=== PATIENT | female | born 1960 | race Caucasian/White ===

== ENCOUNTER 2024-06-24 21:54 | Inpatient (IN) | payer MEDICARE, OTHER ==
[~2024-06-24] VITALS: Ht 160 cm; Wt 81.6 kg
[2024-06-24] MEDS ORDERED: REMEDY ESSENTIAL ZINC PASTE 113 GM TP PRN (22:15)
[2024-06-24] MEDS ORDERED: ONDANSETRON 4 MG/2 ML VIAL IV PRN (22:15)
[2024-06-24] MEDS: IV NS 1000 ML 1,000 ML IV PRN (23:14)
[2024-06-24] MEDS: HYDROCODONE/APAP 5-325MG TABLET PO PRN (23:29)
[2024-06-25] VITALS (7 sets, daily range): BP systolic 136–162; BP diastolic 81–88; TEMP 98–99.5; O2SAT 97–99
[2024-06-25] MEDS: MORPHINE SULFATE 2 MG/1 ML DISP.SYRIN IV PRN (02:16)
[2024-06-25] MEDS: PANTOPRAZOLE SODIUM 40 MG TABLET.DR PO SCH (06:12)
[2024-06-25 07:02] LABS: BASOPHILS % (AUTO) 0.4 % (0.0-2.0); EOSINOPHILS # (AUTO) 0.1 K/uL (0.0-0.7); EOSINOPHILS % (AUTO) 1.8 % (0.0-7.0); HEMATOCRIT 41.3 % (31.2-41.9); HEMOGLOBIN 13.7 g/dL (10.9-14.3); LYMPHOCYTES # (AUTO) 1.2 K/uL (0.8-4.8); LYMPHOCYTES % (AUTO) 18.1 % (20.5-51.5); MEAN CORPUSCULAR HEMOGLOBIN 28.7 uug (24.7-32.8); MEAN CORPUSCULAR HGB CONC 33 g/dL (32.3-35.6); MONOCYTES # (AUTO) 0.4 K/uL (0.1-1.30); MONOCYTES % (AUTO) 5.4 % (0.0-11.0); NEUTROPHILS # (AUTO) 4.8 K/uL (1.8-8.9); NEUTROPHILS % (AUTO) 74.3 % (38.5-71.5); PLATELET COUNT (AUTO) 294 K/uL (179-408); RED BLOOD CELL COUNT(AUTO) 4.75 MIL/uL (3.63-4.92); RED CELL DISTRIBUTION WIDTH 14.3 % (12.3-17.7); WHITE BLOOD COUNT (AUTO) 6.5 K/uL (3.8-11.8)
[2024-06-25 07:08] LABS: CALCIUM 8.8 mg/dL (8.5-10.1); CARBON DIOXIDE 33 mmol/L (21-32); CHLORIDE 88 mmol/L (98-107); CHOLESTEROL 369 mg/dL (<200); CREATININE 0.9 mg/dL (0.6-1.3); GLUCOSE 164 mg/dL (74-106); HDL CHOLESTEROL 55 mg/dL (40-60); MAGNESIUM 1.7 mg/dL (1.8-2.4); PHOSPHOROUS 3.1 mg/dL (2.5-4.9); POTASSIUM 2.9 mmol/L (3.5-5.1); SODIUM SERUM 126 mmol/L (136-145); TRIGLYCERIDES 494 MG/DL (30-150); UREA NITROGEN, BLOOD 10 mg/dL (7-18)
[2024-06-25 07:38] LABS: DIFFERENTIAL COMMENT 1
[2024-06-25] MEDS: ASPIRIN 81 MG TAB.CHEW PO SCH (09:00)
[2024-06-25] MEDS ORDERED: ENOXAPARIN SODIUM 40 MG/0.4 ML DISP.SYRIN SQ SCH (10:00)
[2024-06-25 10:32] LABS: THYROID STIMULATING HORMONE 158.184 mIU/mL (0.358-3.740)
[2024-06-25] MEDS ORDERED: POTASSIUM CHLORIDE 50 ML IV SCH (11:15)
[2024-06-25] MEDS ORDERED: POTASSIUM CHLORIDE 10 MEQ, LIDOCAINE-MPF 1% 1 ML in IV DEXTROSE 5% 100 ML IV SCH (11:30)
[2024-06-25 11:51] LABS: CALCIUM 8.9 mg/dL (8.5-10.1); CREATININE 0.9 mg/dL (0.6-1.3); MAGNESIUM 1.8 mg/dL (1.8-2.4); PHOSPHOROUS 2.8 mg/dL (2.5-4.9); URIC ACID 6.6 mg/dL (2.6-6.0)
[2024-06-25] MEDS: POTASSIUM CHLORIDE 20 MEQ TAB.PRT.SR PO ONE (11:53)
[2024-06-25] MEDS: MAGNESIUM OXIDE 400 MG TABLET PO ONE (11:53)
[2024-06-25] MEDS ORDERED: OXYC-133 PO (14:20)
[2024-06-25] MEDS ORDERED: GABA300C PO (14:20)
[2024-06-25] MEDS ORDERED: LEVO175T7 PO (14:20)
[2024-06-25] MEDS: LIDOCAINE 5% PATCH TD SCH (14:47)
[2024-06-25] MEDS: ALLOPURINOL 100 MG TABLET PO SCH (14:47)
[2024-06-25] MEDS: LEVOTHYROXINE SODIUM 100 MCG VIAL IV SCH (14:47)
[2024-06-25 15:34] LABS: *SODIUM RNDM,URINE 33 mmol/L (40-220)
[2024-06-25] MEDS: MAGNESIUM HYDROXIDE 30 ML LIQUID UDC PO PRN (20:12)
[2024-06-25] MEDS: ATORVASTATIN 40 MG TABLET PO SCH (20:12)
[2024-06-25] MEDS: ACETAMINOPHEN 325 MG TABLET PO PRN (23:39)
[2024-06-25] MEDS: TEMAZEPAM 15 MG CAPSULE PO PRN (23:39)
[2024-06-26] VITALS (7 sets, daily range): BP systolic 140–185; BP diastolic 84–103; TEMP 97.5–98.5; O2SAT 96–99
[2024-06-26] MEDS: LIOTHYRONINE SODIUM 25 MCG TABLET PO SCH (06:25)
[2024-06-26 06:52] LABS: CALCIUM 8.9 mg/dL (8.5-10.1); CREATININE 0.7 mg/dL (0.6-1.3)
[2024-06-26 07:09] LABS: POTASSIUM 2.8 mmol/L (3.5-5.1)
[2024-06-26] MEDS: hydrALAZINE HCL 20 MG/1 ML VIAL IV PRN (07:39)
[2024-06-26] MEDS: POTASSIUM CHLORIDE 50 ML IV SCH (08:29)
[2024-06-26] MEDS: POTASSIUM CHLORIDE 20 MEQ POWDER PACKET GT ONE (08:29)
[2024-06-26] MEDS: LOSARTAN POTASSIUM 50 MG TABLET PO SCH (08:30)
[2024-06-26] MEDS: ENOXAPARIN SODIUM 40 MG/0.4 ML DISP.SYRIN SQ SCH (08:32)
[2024-06-26] MEDS: BISACODYL 10 MG SUPP.RECT RC ONE (17:07)
[2024-06-26] MEDS: GABAPENTIN 300 MG CAPSULE PO PRN (17:07)
[2024-06-26] MEDS: AMLODIPINE 5 MG TABLET PO SCH (22:17)
[2024-06-27 00:02] VITALS: BP 152/90; TEMP 97.6; O2SAT 95
[2024-06-27 04:55] VITALS: BP 154/88; TEMP 98.2; O2SAT 96
[2024-06-27 08:25] LABS: CREATININE 0.7 mg/dL (0.6-1.3); POTASSIUM 3.9 mmol/L (3.5-5.1)
[2024-06-27 10:19] LABS: THYROID STIMULATING HORMONE 124.923 mIU/mL (0.358-3.740)
[2024-06-27] MEDS: IV NS 1000 ML 1,000 ML IV PRN (11:14)
[2024-06-27 11:57] VITALS: BP 143/90; TEMP 98.2; O2SAT 98
[2024-06-27 16:09] VITALS: BP 139/79; TEMP 98.2; O2SAT 97
[2024-06-27 20:24] VITALS: BP 152/79; TEMP 97.9; O2SAT 99
[2024-06-28 04:50] VITALS: BP 151/86; TEMP 98; O2SAT 98
[2024-06-28 08:01] LABS: CALCIUM 8.8 mg/dL (8.5-10.1); CREATININE 0.7 mg/dL (0.6-1.3); POTASSIUM 3.7 mmol/L (3.5-5.1)
[2024-06-28] MEDS: LEVOTHYROXINE SODIUM 100 MCG VIAL IV SCH (09:58)
[2024-06-28] MEDS ORDERED: LEVO200T9 PO (11:10)
[2024-06-28] MEDS ORDERED: LOSA50TA3 PO (11:10)
[2024-06-28] MEDS ORDERED: LIOT25TA7 PO (11:10)
[2024-06-28] MEDS ORDERED: LIDO30AD10 TD (11:10)
[2024-06-28 12:00] VITALS: BP 154/98; TEMP 98.3; O2SAT 98
== END 2024-06-28 12:15 | disposition home or self-care (01) | DRG 643 ==
LOC: TELE3 21:54 → MEDSURG3 06-26 11:15
PROVIDERS: ADMIT Nurse Practitioner Acute Care; ATTEND Nurse Practitioner Acute Care
DX: E03.9 Hypothyroidism, unspecified (principal); I21.A1 Myocardial infarction type 2; E87.1 Hypo-osmolality and hyponatremia; Z91.148 Patient's other noncompliance with medication regimen for other reason; E83.42 Hypomagnesemia; E66.9 Obesity, unspecified; Z68.31 Body mass index [BMI] 31.0-31.9, adult; E87.6 Hypokalemia; E86.1 Hypovolemia; E78.5 Hyperlipidemia, unspecified; M54.31 Sciatica, right side; I35.8 Other nonrheumatic aortic valve disorders; I10 Essential (primary) hypertension; E79.0 Hyperuricemia without signs of inflammatory arthritis and tophaceous disease
CPT/HCPCS: 36415; 82533; 83735; 84100; 84300; 84443; 84480; 84484; 84550; 85025; 93307; A4663; G0378; J0360; J1650; J2001; J2270; J3480; J7040; J8499